=== PATIENT | male | born 2005 | race Caucasian/White ===

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

== ENCOUNTER 2023-05-04 11:49 | Outpatient (CLI) | payer MEDICAID ==
--- NOTE | 2023-05-04 17:44 | XRAY Report ---
PROCEDURE: Ankle 3 View RT INDICATIONS: SPRAIN OF RIGHT ANKLE TECHNIQUE: 3 views of the ankle were acquired. COMPARISON: None. FINDINGS: Bones: No fractures or dislocations. Ankle mortise is normally aligned. No suspicious bony lesions . Soft tissues: No tibiotalar joint effusion. Achilles tendon appears normal. Lateral soft tissue sw elling IMPRESSION: Soft tissue swelling without fracture or foreign body Reviewed by: Kiet Lei MD on 05/04/2023 4:43 PM AKDT Approved by: Kiet Lei MD on 05/04/2023 4:43 PM AKDT Station ID: [id number]
--- NOTE | 2023-05-04 18:42 | XRAY Report ---
PROCEDURE: Foot 3 View RT INDICATIONS: RIGHT FOOT PAIN TECHNIQUE: 3 views of the foot were acquired. COMPARISON: None. FINDINGS: Bones: No fractures or dislocations. No suspicious bony lesions. Soft tissues: No suspicious soft tissue calcifications or masses. IMPRESSION: Unremarkable right foot radiographs Reviewed by: Kiet Lei MD on 05/04/2023 5:40 PM AKDT Approved by: Kiet Lei MD on 05/04/2023 5:40 PM AKDT Station ID: [id number]
== END 2023-05-04 23:59 | disposition home or self-care (01) ==
LOC: DI.S 11:49
PROVIDERS: ATTEND Physician Assistant
DX: S93.491A Sprain of other ligament of right ankle, initial encounter (principal); M79.671 Pain in right foot

== ENCOUNTER 2023-05-13 13:00 | Outpatient (CLI) | payer MEDICAID ==
--- NOTE | 2023-05-13 20:03 | XRAY Report ---
PROCEDURE: Foot 3 View RT INDICATIONS: RIGHT FOOT PAIN TECHNIQUE: 3 views of the foot were acquired. COMPARISON: Right foot radiographs 05/04/2023 FINDINGS: Bones: No acute fractures or dislocations. No suspicious bony lesions. Soft tissues: No suspicious soft tissue calcifications or masses. IMPRESSION: No acute osseous abnormality. If symptoms persist or there is continued clinical concern, further brittney luation with MRI or CT may be helpful. Reviewed by: Sukhjinder Latif MD on 05/13/2023 8:02 PM PDT Approved by: Sukhjinder Latif MD on 05/13/2023 8:02 PM PDT Station ID: [id number]
--- NOTE | 2023-05-13 20:03 | XRAY Report ---
PROCEDURE: Ankle 3 View RT INDICATIONS: RIGHT ANKLE PAIN TECHNIQUE: 3 views of the ankle were acquired. COMPARISON: Right ankle radiographs 05/04/2023 FINDINGS: Bones: No acute fractures or dislocations. Ankle mortise is normally aligned. No suspicious bony l esions. Soft tissues: Mild soft tissue edema surrounding the ankle. Probable tibiotalar joint effusion. Ach illes tendon appears normal. IMPRESSION: No acute osseous abnormality. If symptoms persist or there is continued clinical concern, further brittney luation with MRI or CT may be helpful. Reviewed by: Sukhjinder Latif MD on 05/13/2023 8:01 PM PDT Approved by: Sukhjinder Latif MD on 05/13/2023 8:01 PM PDT Station ID: [id number]
== END 2023-05-13 23:59 | disposition home or self-care (01) ==
LOC: DI.WOS 13:00
PROVIDERS: ATTEND Orthopaedic Surgery Sports Medicine
DX: M79.671 Pain in right foot (principal); S93.491A Sprain of other ligament of right ankle, initial encounter

== ENCOUNTER 2023-06-17 08:00 | Outpatient (CLI) | payer MEDICAID ==
--- NOTE | 2023-06-18 09:44 | XRAY Report ---
PROCEDURE: Ankle 3 View RT INDICATIONS: RIGHT ANKLE PAIN TECHNIQUE: 3 views of the ankle were acquired. COMPARISON: X-ray right ankle, 05/13/2023 and 05/04/2023. FINDINGS: Bones: No fractures or dislocations. Ankle mortise is normally aligned. No suspicious bony lesions . Soft tissues: Small tibiotalar joint effusion. Achilles tendon appears normal. IMPRESSION: No acute bony abnormality. Small tibiotalar joint effusion. Reviewed by: Carlene Swanson MD on 06/18/2023 9:43 AM PDT Approved by: Carlene Swanson MD on 06/18/2023 9:43 AM PDT Station ID: [id number]
== END 2023-06-17 23:59 | disposition home or self-care (01) ==
LOC: DI.WOS 08:00
PROVIDERS: ATTEND Physician Assistant Surgical
DX: S93.491A Sprain of other ligament of right ankle, initial encounter (principal); M25.471 Effusion, right ankle

== ENCOUNTER 2024-05-19 22:36 | Outpatient (CLI) | payer SELFPAY | END 2024-05-19 23:59 | disposition short-term general hospital (02) | LOC: EMS 22:36 | DX: S61.200A Unspecified open wound of right index finger without damage to nail, initial encounter (principal); S61.202A Unspecified open wound of right middle finger without damage to nail, initial encounter; S61.001A Unspecified open wound of right thumb without damage to nail, initial encounter; S61.401A Unspecified open wound of right hand, initial encounter; W39.XXXA Discharge of firework, initial encounter; Y92.832 Beach as the place of occurrence of the external cause ==